=== PATIENT | male | born 1970 | race Caucasian/White ===

== ENCOUNTER 2016-08-13 00:34 | Emergency (ER) | payer OTHER, MEDICARE ==
[2016-08-13] MEDS ORDERED: DILAUDID 1 MG/ML AMP ONE (04:35)
[2016-08-13] MEDS ORDERED: METHYLPRED SOD SUCC 125 MG/2 ML VIAL ONE (05:55)
== END 2016-08-13 07:39 | disposition home or self-care (01) ==
LOC: ER 00:34
DX: M06.851 Other specified rheumatoid arthritis, right hip (principal); M25.451 Effusion, right hip; X50.1XXA Overexertion from prolonged static or awkward postures, initial encounter; Y92.009 Unspecified place in unspecified non-institutional (private) residence as the place of occurrence of the external cause; Z87.891 Personal history of nicotine dependence
CPT/HCPCS: 36415; 73700; 80053; 85025; 85652; 86141; 96372